=== PATIENT | female | born 1995 | race Caucasian/White ===

== ENCOUNTER 2017-04-01 05:04 | Emergency (ER) | payer OTHER ==
[~2017-04-01] VITALS: Ht 162.6 cm; Wt 108.9 kg
[~2017-04-01 05:04] MED LIST: CIPRO250 M1 PO; HYDROCODON-ACE1 EAC7 PO; NOHOMEMEDICATIONS; OSELB75 PO; PHENERGAN 25 MG25 M1 PO; VICODIN 5-5001 EACH PO
[2017-04-01 05:16] LABS: ABSOLUTE BASOPHILS 0.1 thou/uL (0.0-0.2); ABSOLUTE EOSINOPHILS 0.1 thou/uL (0.0-0.7); ABSOLUTE LYMPHOCYTES 2.5 thou/uL (0.8-5.3); ABSOLUTE MONOCYTES 0.9 thou/uL (0.0-1.2); BASOPHILS 0.4 %; EOSINOPHILS 0.8 %; HEMATOCRIT 42.4 % (37.0-47.0); HEMOGLOBIN 13.7 gm/dL (12.0-15.0); LYMPHOCYTES 18.4 %; MCH 23.5 pg (26.0-34.0); MCHC 32.4 g/dL (28.0-37.0); MCV 72.5 fL (80.0-100.0); MONOCYTES 6.9 %; MPV 7.8 fl. (7.2-11.1); NUCLEATED RBCS 0 /100WBC; PLATELET COUNT* 330 thou/uL (150-400); POLYS 73.5 %; RBC 5.84 mil/uL (4.20-5.00); RDW-CV 18.3 % (10.5-14.5); WBC 13.6 thou/uL (4.0-11.0)
[2017-04-01 05:21] LABS: CALCIUM 9.5 mg/dL (8.5-10.1); CREATININE 0.8 mg/dL (0.6-1.3); POTASSIUM 3.8 mmol/L (3.5-5.1)
[2017-04-01 05:31] LABS: ALBUMIN 3.8 g/dL (3.4-5.0); TOTAL BILIRUBIN 0.5 mg/dL (<0.1-1.0); TOTAL PROTEIN 8.4 g/dL (6.4-8.2)
[2017-04-01 05:39] LABS: URINE BLOOD NEGATIVE (Negative); URINE CLARITY CLEAR; URINE COLOR YELLOW; URINE GLUCOSE-RANDOM NEGATIVE (Negative); URINE KETONES 2+ (Negative); URINE LEUKOCYTES-REFLEX 1+ (Negative); URINE NITRITE-REFLEX NEGATIVE (Negative); URINE PROTEIN TRACE (Negative); URINE SPECIFIC GRAVITY 1.015 (1.005-1.030); URINE UROBILINOGEN 0.2 E.U./dl (0.2-1.0)
[2017-04-01 05:40] LABS: URINE BILIRUBIN 1+ (Negative)
[2017-04-01 05:41] LABS: ICTOTEST (BILI CONFIRMATORY) Negative (Negative)
[2017-04-01 05:41] LABS: ACETAMINOPHEN 2 ug/mL (10-30); ALCOHOL < 10 mg/dL (<10); SALICYLATE < 2.8 mg/dL (2.8-20.0)
[2017-04-01 05:48] LABS: AMP/METHAMP Negative (Negative); BARBITURATES Negative (Negative); BENZODIAZEPINES Negative (Negative); COCAINE Negative (Negative); METHADONE Negative (Negative); OPIATES Negative (Negative); PCP Negative (Negative); THC POSITIVE (Negative)
[2017-04-01 05:57] LABS: AMORPHOUS PHOSPHATES Moderate /LPF (None Seen); BACTERIA-REFLEX >30 Many /HPF (None Seen); CASTS None Seen /LPF (None Seen); MUCUS 4-6 Moderate strn/LPF (None Seen); SQUAMOUS 0-3 Few /LPF (0-3); URINE RBC 3-10 Few /HPF (0-2); WBC CLUMPS Few (None Seen)
[2017-04-01] MEDS ORDERED: BACTRIM DS TAB1 EAC1 PO (08:19)
[2017-04-01 09:05] VITALS: BP 99/50
--- NOTE | 2017-04-01 10:22 | EKG ---
[place] [address] ELECTROCARDIOGRAM REPORT Name: EMILYHONG Room: [facility]#: [id number] Admission: 04/01/17 Attend Phys: Discharge: 04/01/17 Date of : [birth year] Report #: [id number] THIS REPORT FOR: //name// [facility] ED Test Date: 2017-04-01 Test Time: 05:20:26 Pat Name: HONG DIAZ Department: Room: Gender: F Bottomer Operator: INESSA [place] : 1995 Requested By: Rebekah Jerome Order Number: [id number] MD: Nadeem Hewitt Measurements Intervals Aiken Rate: 92 P: 47 SD: 151 QRS: 26 QRSD: 76 T: 6 QT: 337 QTc: 417 Interpretive Statements Sinus rhythm Probable left atrial enlargement Low voltage, precordial leads No previous ECG available for comparison Electronically Signed On 04-01-2017 10:22:01 SCREEN [employer] by Nadeem Hewitt [email or web address] <ELECTRONICALLY SIGNED> By: Nadeem Hewitt MD, [facility] 04/01/17 1022 0520 9 Nadeem Hewitt MD, FACC /EPI
== END 2017-04-01 09:29 | disposition home or self-care (01) ==
LOC: M.ERS 05:04
PROVIDERS: Emergency Medicine
DX: R31.9 Hematuria, unspecified (principal); N90.818 Other female genital mutilation status